=== PATIENT | male | born 1980 | race Caucasian/White ===

== ENCOUNTER 2018-05-21 14:38 | Emergency (ER) | payer MEDICAID ==
[~2018-05-21] VITALS: Ht 180.3 cm; Wt 89.1 kg
[~2018-05-21 14:38] MED LIST: ALBU6.7H INH
[2018-05-21 14:43] VITALS: BP 154/86
[2018-05-21] MEDS ORDERED: BUPIVAcaine/PF 2.5 mg/ml (0.25%) 30ml vial IJ ONE (15:00)
[2018-05-21] MEDS ORDERED: BUPIVAcaine/PF 2.5mg/ml (0.25%) 10ml vial IJ ONE (15:00)
[2018-05-21] MEDS ORDERED: AMOX-101 PO (15:07)
== END 2018-05-21 15:27 | disposition home or self-care (01) ==
LOC: ER 14:38
DX: K02.9 Dental caries, unspecified (principal); K03.2 Erosion of teeth; F17.210 Nicotine dependence, cigarettes, uncomplicated; Z90.49 Acquired absence of other specified parts of digestive tract; Z88.8 Allergy status to other drugs, medicaments and biological substances; Z88.6 Allergy status to analgesic agent
CPT/HCPCS: 64400; 99284; J3490